=== PATIENT | female | born 1970 | race African-American/Black ===

== ENCOUNTER 2016-09-12 11:31 | Inpatient (IN) | payer BC ==
[2016-09-12 12:08] VITALS: BMI 24.0
--- NOTE | 2016-09-12 12:48 | HP ---
CIWA Score - CIWA Score Nausea/Vomitin-Mild Nausea/No Vomiting Muscle Tremors: 4-Moderate,w/Arms Extend Anxiety: 4-Mod. Anxious/Guarded Agitation: 1-Slight > Activity Paroxysmal Sweats: 1-Minimal Palms Moist Orientation: 0-Oriented Tacttile Disturbances: 1-Very Mild Itch/Numbness Auditory Disturbances: 1-Very Mild Visual Disturbances: 1-Very Mild Sensitivity Headache: 1-Very Mild CIWA-Ar Total Score: 15 Admission ROS BHS - HPI Chief Complaint: It's time, I want to stop Allergies/Adverse Reactions: Allergies Allergy/AdvReac Type Severity Reaction Status Date / Time No Known Allergies Allergy Verified 09/12/16 12:38 History of Present Illness: 46 yo woman here in detox for first time for alcohol dependence - history of being in outpatient rehab and 12 step meetings. No seizures but does have black outs. Exam Limitations: Clinical Condition - Ebola screening Have you traveled outside of the country in the last 21 days: No Have you had contact with anyone from an Ebola affected area: No Have you been sick,other than usual withdrawal symptoms: No Do you have a fever: No - Review of Systems Constitutional: Loss of Appetite, Malaise, Changes in sleep EENT: reports: No Symptoms Reported Respiratory: reports: No Symptoms reported Cardiac: reports: No Symptoms Reported GI: reports: No Symptoms Reported : reports: No Symptoms Reported Musculoskeletal: reports: No Symptoms Reported Integumentary: reports: Dryness Neuro: reports: Headache, Tremors Endocrine: reports: No Symptoms Reported Hematology: reports: No Symptoms Reported Psychiatric: reports: Judgement Intact, Mood/Affect Appropiate, Orientated x3, Anxious Other Systems: Reviewed and Negative Patient History - Patient Medical History Hx Asthma: No Hx Chronic Obstructive Pulmonary Disease (COPD): No Hx Cancer: No Hx Cardiac Disorders: No Hx Congestive Heart Failure: No Hx Hypertension: No Hx Hypercholesterolemia: No Hx Pacemaker: No Hx Seizures: No Hx Dementia: No Hx Diabetes: No Hx Gastrointestinal Disorders: No Hx Liver Disease: No Hx Genitourinary Disorders: No Hx Sexually Transmitted Disorders: No Hx Renal Disease (ESRD): No Hx Thyroid Disease: No Hx Human Immunodeficiency Virus (HIV): No Hx Hepatitis C: No Hx Depression: Yes (with anxiety and insomnia) Hx Suicide Attempt: No Hx Bipolar Disorder: No Hx Schizophrenia: No - Patient Surgical History Past Surgical History: Yes Hx Breast Surgery: Yes (breast reduction 2007) Hx Abdominal Surgery: Yes (gastric bypass 2006, intestional blockage s/p bypass) Hx Genitourinary Surgery: Yes (tubal ligation 1997) Hx Orthopedic Surgery: Yes (right ankle fracture with screws/plate 1988) - PPD History Previous Implant?: Yes Documented Results: Negative w/o proof PPD to be Administered?: Yes - Reproductive History Patient is a Female of Child Bearing Age (11 -55 yrs old): Yes - Smoking Cessation Smoking history: Never smoked - Substance & Tx. History Hx Alcohol Use: Yes Hx Substance Use: Yes Substance Use Type: Alcohol, Marijuana Hx Substance Use Treatment: Yes (outpatient rehab, 12 step) Family Disease History - Family Disease History Family Disease History: [place]: Grandparent (bio grandma - - etoh), Father (alive, ), Other: Grandparent, Father, Mother (alive, healthy), Brother (1/2 bro - healthy - hx drugs), Sister (1/2 sister - healthy - uses pot), Son (living , healthy, pot (age 21)), Daughter (living, healthy, age 19 ) Admission Physical Exam [facility] - Vital Signs Vital Signs: Vital Signs - 24 hr 09/12/16 11:53 Temperature 98.6 F Pulse Rate 74 Respiratory 18 Rate Blood Pressure 133/81 - Physical General Appearance: Yes: Nourished, Appropriately Dressed, Mild Distress, Tremorous HEENTM: Yes: Hearing grossly Normal, Normocephalic, Normal Voice, Pharynx Normal Respiratory: Yes: Normal Breath Sounds, No Respiratory Distress Neck: Yes: No masses,lesions,Nodules, Supple Breast: Yes: Breast Exam Deferred Cardiology: Yes: Regular Rhythm, Regular Rate Abdominal: Yes: Soft Genitourinary: Yes: Frequency Back: Yes: Normal Inspection Musculoskeletal: Yes: full range of Motion, Gait Steady Extremities: Yes: Normal Inspection, Normal Range of Motion Neurological: Yes: Fully Oriented, Alert, Normal Mood/Affect, Normal Response Integumentary: Yes: Normal Color, Warm Lymphatic: Yes: Within Normal Limits - Diagnostic (1) Alcohol dependence with uncomplicated withdrawal Current Visit: Yes Status: Chronic (2) Marijuana dependence Current Visit: Yes Status: Chronic (3) History of gastric bypass Current Visit: Yes Status: Chronic Cleared for Admission [facility] - Detox or Rehab [facility] Level of Care: Medically Managed [facility] Bre[facility] Alcohol Content Breath Alcohol Content: 0.094 Urine Pregancy Test - Result Urine Test Results: Negative- NO Line Present Urine Drug Screen - Results Drug Screen Negative: No Urine Drug Screen Results: THC-Marijuana
[2016-09-12] MEDS ORDERED: ACETAMINOPHEN 325 MG TABLET (FP) PO PRN (12:53)
[2016-09-12] MEDS ORDERED: P-EPHED 60MG/TRIPROLIDI 2.5MG TABLET PO PRN (12:53)
[2016-09-12] MEDS ORDERED: LOPERAMIDE HCL 2 MG CAPSULE PO PRN (12:53)
[2016-09-12] MEDS ORDERED: hydrOXYzine PAMOATE 50 MG CAPSULE (FP) PO PRN (12:53)
[2016-09-12] MEDS ORDERED: MAGNESIUM HYDROX 2400MG/30ML ORAL SUSPENSION 30 ML CUP PO PRN (12:53)
[2016-09-12] MEDS ORDERED: chlordiazePOXIDE HCL 25 MG CAPSULE PO PRN (12:53)
[2016-09-12] MEDS ORDERED: MENTHOL/PHENOL 1 EACH UD MM PRN (12:53)
[2016-09-12] MEDS ORDERED: IBUPROFEN 400 MG TABLET (FP) PO PRN (12:53)
[2016-09-12] MEDS ORDERED: guaiFENesin/D-METHORPHAN HB 10 ML UNIT-DOSE CUPS PO PRN (12:53)
[2016-09-12] MEDS ORDERED: MAG HYDROX/AL HYDROX/SIMETH 30 ML UNIT-DOSE CUP PO PRN (12:53)
[2016-09-12] MEDS ORDERED: MAGNESIUM CITRATE 300 ML BOTTLE PO PRN (12:53)
[2016-09-12] MEDS ORDERED: chlordiazePOXIDE HCL 25 MG CAPSULE PO ONE (13:30)
[2016-09-12 17:16] LABS: URINE APPEARANCE SLCLOUDY; URINE BLOOD NEGATIVE (NEGATIVE); URINE COLOR AMBER; URINE GLUCOSE (UA) NEGATIVE (NEGATIVE); URINE KETONE TRACE (NEGATIVE); URINE NITRITE NEGATIVE (NEGATIVE); URINE PROTEIN NEGATIVE (NEGATIVE)
[2016-09-12 17:20] LABS: URINE LEUK ESTERASE 1+ (NEGATIVE)
[2016-09-12] MEDS: chlordiazePOXIDE HCL 25 MG CAPSULE PO SCH ×2 (17:20→22:01)
[2016-09-12 17:26] LABS: URINE MUCUS RARE; URINE RBC 10 /hpf (0-3); URINE WBC 4 /hpf (3-5)
[2016-09-12] MEDS: THIAMINE HCL 100 MG TABLET (FP) PO SCH (22:01)
[2016-09-12] MEDS: diphenhydrAMINE HCL 50 MG CAPSULE PO PRN (22:03)
[2016-09-13] MEDS: chlordiazePOXIDE HCL 25 MG CAPSULE PO SCH ×4 (06:03→22:20)
[2016-09-13 10:31] LABS: ALBUMIN 3.1 g/dl (3.4-5.0); ANION GAP 8 (8-16); CALCIUM 9.1 mg/dL (8.5-10.1); CO2 29 mmol/L (21-32); GLUCOSE,RANDOM 61 mg/dL (74-106); SGOT/AST 73 U/L (15-37); SGPT/ALT 42 U/L (12-78)
[2016-09-13 10:33] LABS: ALK PHOS 104 U/L (45-117); BILIRUBIN,TOTAL 0.4 mg/dL (0.2-1.0); CREATININE 0.8 mg/dL (0.55-1.02); MCH 34.6 pg (25.7-33.7); MCHC 33.7 g/dl (32.0-36.0); MEAN CELL VOLUME 102.8 fl (80-96); MEAN PLT VOLUME 8.2 fl (7.5-11.1); PLATELET COUNT 210 K/MM3 (134-434); RDW 13.7 % (11.6-15.6); TOT PROT 6.3 g/dl (6.4-8.2); WHITE BLOOD COUNT 4.3 K/mm3 (4.0-10.0)
[2016-09-13] MEDS: PRENATAL VITAMINS W/ FOLIC ACID TABLET (FP) PO SCH (10:42)
[2016-09-13] MEDS ORDERED: FLUoxetine HCL 20 MG CAPSULE (FP) PO SCH (13:15)
[2016-09-13] MEDS: ESCITALOPRAM OXALATE 20 MG TABLET (FP) PO SCH (14:44)
--- NOTE | 2016-09-13 16:00 | PN ---
[facility] CIWA - CIWA Score Nausea/Vomitin-Mild Nausea/No Vomiting Muscle Tremors: 3 Anxiety: 4-Mod. Anxious/Guarded Agitation: 4-Moderately Restless Paroxysmal Sweats: 3 Orientation: 0-Oriented Tacttile Disturbances: 0-None Auditory Disturbances: 0-None Visual Disturbances: 0-None Headache: 0-None Present CIWA-Ar Total Score: 15 BHS Progress Note (SOAP) Subjective: Anxiety,tremors,sweating,interrupted sleep,restless Objective: 09/13/16 15:59 Vital Signs - 8 hr 09/13/16 09/13/16 10:00 13:44 Temperature 97.9 F 97.9 F Pulse Rate 59 L 66 Respiratory 18 18 Rate Blood Pressure 146/77 130/76 Laboratory Last Values WBC 4.3 K/mm3 (4.0-10.0) 09/13/16 07:45 RBC 3.16 M/mm3 (3.60-5.2) L 09/13/16 07:45 Hgb 10.9 GM/dL (10.7-15.3) 09/13/16 07:45 Hct 32.5 % (32.4-45.2) 09/13/16 07:45 MCV 102.8 fl (80-96) H 09/13/16 07:45 MCH 34.6 pg (25.7-33.7) H 09/13/16 07:45 MCHC 33.7 g/dl (32.0-36.0) 09/13/16 07:45 RDW 13.7 % (11.6-15.6) 09/13/16 07:45 Plt Count 210 K/MM3 (134-434) 09/13/16 07:45 MPV 8.2 fl (7.5-11.1) 09/13/16 07:45 Sodium 139 mmol/L (136-145) 09/13/16 07:45 Potassium 4.0 mmol/L (3.5-5.1) 09/13/16 07:45 Chloride 102 mmol/L (98-107) 09/13/16 07:45 Carbon Dioxide 29 mmol/L (21-32) 09/13/16 07:45 Anion Gap 8 (8-16) 09/13/16 07:45 BUN 13 mg/dL (7-18) 09/13/16 07:45 Creatinine 0.8 mg/dL (0.55-1.02) 09/13/16 07:45 Creat Clearance w eGFR > 60 (>60) 09/13/16 07:45 Random Glucose 61 mg/dL (74-106) L 09/13/16 07:45 Calcium 9.1 mg/dL (8.5-10.1) 09/13/16 07:45 Total Bilirubin 0.4 mg/dL (0.2-1.0) 09/13/16 07:45 AST 73 U/L (15-37) H 09/13/16 07:45 ALT 42 U/L (12-78) 09/13/16 07:45 Alkaline Phosphatase 104 U/L (45-117) 09/13/16 07:45 Total Protein 6.3 g/dl (6.4-8.2) L 09/13/16 07:45 Albumin 3.1 g/dl (3.4-5.0) L 09/13/16 07:45 Urine Color Talya 09/12/16 16:30 Urine Appearance Slcloudy 09/12/16 16:30 Urine pH 5.0 (5.0-8.0) 09/12/16 16:30 Ur Specific [place] >= 1.030 (1.005-1.025) H 09/12/16 16:30 Urine Protein Negative (NEGATIVE) 09/12/16 16:30 Urine Glucose (UA) Negative (NEGATIVE) 09/12/16 16:30 Urine Ketones Trace (NEGATIVE) H 09/12/16 16:30 Urine Blood Negative (NEGATIVE) 09/12/16 16:30 Urine Nitrite Negative (NEGATIVE) 09/12/16 16:30 Urine Bilirubin 2.0 (NEGATIVE) 09/12/16 16:30 Urine Urobilinogen 2.0 mg/dL (0.2-1.0) H 09/12/16 16:30 Ur Leukocyte Esterase 1+ (NEGATIVE) H 09/12/16 16:30 Urine RBC 10 /hpf (0-3) 09/12/16 16:30 Urine WBC 4 /hpf (3-5) 09/12/16 16:30 Ur Epithelial Cells Many /hpf (FEW) 09/12/16 16:30 Urine Mucus Rare 09/12/16 16:30 RPR Titer Nonreactive (NONREACTIVE) 09/13/16 07:45 labs noted Assessment: 09/13/16 16:00 Withdrawal sx. Plan: Continue detox
[2016-09-13] MEDS: THIAMINE HCL 100 MG TABLET (FP) PO SCH (22:20)
[2016-09-13] MEDS: diphenhydrAMINE HCL 50 MG CAPSULE PO PRN (22:20)
[2016-09-14] MEDS: chlordiazePOXIDE HCL 25 MG CAPSULE PO SCH ×2 (05:35→10:18)
--- NOTE | 2016-09-14 08:52 | CONSULT ---
[facility] Psychiatric Consult - Data Date of interview: 09/14/16 Admission source: [facility] Identifying data: This is 46 years old female with no psychiatric hospitalization history intoxicated with: Alcohol and Cannabis Substance Abuse History: - Smoking Cessation. Smoking history: Never smoked. - Substance & Tx. History. Hx Alcohol Use: Yes. Hx Substance Use: Yes. Substance Use Type: Alcohol, Marijuana. Hx Substance Use Treatment: Yes ( outpatient rehab, 12 step) Medical History: Gastric Bypass s/p 2000 Psychiatric History: RTeports history of depression, reports taking prior to admission: Lexapro 20mg poqd Physical/Sexual Abuse/Trauma History: Denies Additional Comment: Urine Drug Screen Results: THC-Marijuana. Lexapro 20mg poqd Mental Status Exam - Mental Status Exam Alert and Oriented to: Person Cognitive Function: Fair Patient Appearance: Unkempt Mood: Sad Affect: Mood Congruent Patient Behavior: Cooperative Speech Pattern: Delayed Voice Loudness: Mildly Soft/Quiet Thought Process: Circumstantial Thought Disorder: Being Controlled Hallucinations: Denies Suicidal Ideation: Denies Homicidal Ideation: Denies Insight/Judgement: Fair Sleep: Difficulty falling asleep Appetite: Fair Muscle strength/Tone: Mild Hypotonicity Gait/Station: Shuffling Additional Comments: Lexapro 20mg poqd Psychiatric Findings - Problem List ([place] 1, 2,3) (1) Alcohol dependence with uncomplicated withdrawal Current Visit: Yes Status: Chronic (2) Marijuana dependence Current Visit: Yes Status: Chronic (3) Drug-induced mood disorder Current Visit: Yes Status: Acute - Initial Treatment Plan Initial Treatment Plan: Lexapro 20mg poqd
[2016-09-14 09:50] VITALS: BP 125/75; PULSE 83; TEMP 96.6
--- NOTE | 2016-09-14 09:59 | EKG ---
Test Reason : Blood Pressure : / mmHG Vent. Rate : 066 BPM Atrial Rate : 066 BPM P-R Int : 140 ms QRS Dur : 084 ms QT Int : 430 ms P-R-T Axes : 043 011 023 degrees QTc Int : 450 ms NORMAL SINUS RHYTHM NORMAL ECG NO PREVIOUS ECGS AVAILABLE Confirmed by PAULA VIGIL MD ([id number]) on 09/14/2016 9:58:50 AM Referred By: Confirmed By:PAULA VIGIL MD
--- NOTE | 2016-09-14 10:01 | PN ---
S CIWA - CIWA Score Nausea/Vomitin Muscle Tremors: 3 Anxiety: 3 Agitation: 3 Paroxysmal Sweats: No Perspiration Orientation: 0-Oriented Tacttile Disturbances: 1-Very Mild Itch/Numbness Auditory Disturbances: 1-Very Mild Visual Disturbances: 1-Very Mild Sensitivity Headache: 2-Mild CIWA-Ar Total Score: 16 BHS Progress Note (SOAP) Subjective: ALERT,IRRITABLE,ANXIOUS,INTERRUPTED SLEEP,TREMOR Objective: 09/14/16 09:59 Vital Signs Temperature 96.6 F L 09/14/16 09:50 Pulse Rate 83 09/14/16 09:50 Respiratory Rate 18 09/14/16 09:50 Blood Pressure 125/75 09/14/16 09:50 O2 Sat by Pulse Oximetry (%) EKG NSR,NORMAL ECG Laboratory Last Values WBC 4.3 K/mm3 (4.0-10.0) 09/13/16 07:45 RBC 3.16 M/mm3 (3.60-5.2) L 09/13/16 07:45 Hgb 10.9 GM/dL (10.7-15.3) 09/13/16 07:45 Hct 32.5 % (32.4-45.2) 09/13/16 07:45 MCV 102.8 fl (80-96) H 09/13/16 07:45 MCH 34.6 pg (25.7-33.7) H 09/13/16 07:45 MCHC 33.7 g/dl (32.0-36.0) 09/13/16 07:45 RDW 13.7 % (11.6-15.6) 09/13/16 07:45 Plt Count 210 K/MM3 (134-434) 09/13/16 07:45 MPV 8.2 fl (7.5-11.1) 09/13/16 07:45 Sodium 139 mmol/L (136-145) 09/13/16 07:45 Potassium 4.0 mmol/L (3.5-5.1) 09/13/16 07:45 Chloride 102 mmol/L (98-107) 09/13/16 07:45 Carbon Dioxide 29 mmol/L (21-32) 09/13/16 07:45 Anion Gap 8 (8-16) 09/13/16 07:45 BUN 13 mg/dL (7-18) 09/13/16 07:45 Creatinine 0.8 mg/dL (0.55-1.02) 09/13/16 07:45 Creat Clearance w eGFR > 60 (>60) 09/13/16 07:45 Random Glucose 61 mg/dL (74-106) L 09/13/16 07:45 Calcium 9.1 mg/dL (8.5-10.1) 09/13/16 07:45 Total Bilirubin 0.4 mg/dL (0.2-1.0) 09/13/16 07:45 AST 73 U/L (15-37) H 09/13/16 07:45 ALT 42 U/L (12-78) 09/13/16 07:45 Alkaline Phosphatase 104 U/L (45-117) 09/13/16 07:45 Total Protein 6.3 g/dl (6.4-8.2) L 09/13/16 07:45 Albumin 3.1 g/dl (3.4-5.0) L 09/13/16 07:45 Urine Color Talya 09/12/16 16:30 Urine Appearance Slcloudy 09/12/16 16:30 Urine pH 5.0 (5.0-8.0) 09/12/16 16:30 Ur Specific [place] >= 1.030 (1.005-1.025) H 09/12/16 16:30 Urine Protein Negative (NEGATIVE) 09/12/16 16:30 Urine Glucose (UA) Negative (NEGATIVE) 09/12/16 16:30 Urine Ketones Trace (NEGATIVE) H 09/12/16 16:30 Urine Blood Negative (NEGATIVE) 09/12/16 16:30 Urine Nitrite Negative (NEGATIVE) 09/12/16 16:30 Urine Bilirubin 2.0 (NEGATIVE) 09/12/16 16:30 Urine Urobilinogen 2.0 mg/dL (0.2-1.0) H 09/12/16 16:30 Ur Leukocyte Esterase 1+ (NEGATIVE) H 09/12/16 16:30 Urine RBC 10 /hpf (0-3) 09/12/16 16:30 Urine WBC 4 /hpf (3-5) 09/12/16 16:30 Ur Epithelial Cells Many /hpf (FEW) 09/12/16 16:30 Urine Mucus Rare 09/12/16 16:30 RPR Titer Nonreactive (NONREACTIVE) 09/13/16 07:45 Assessment: 09/14/16 10:01 WITHDRAWAL SYMPTOM Plan: CONTINUE DETOX
[2016-09-14] MEDS: PRENATAL VITAMINS W/ FOLIC ACID TABLET (FP) PO SCH (10:18)
[2016-09-14] MEDS: ESCITALOPRAM OXALATE 20 MG TABLET (FP) PO SCH (10:18)
--- NOTE | 2016-09-14 10:30 | PN ---
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
--- NOTE | 2016-09-14 10:31 | DS ---
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, SEEN BY COUNSELOR,SIGNED RELEASE AMA Pertinent Past History: HISTORY OF GASTRIC BYPASS - Physical Exam Results Vital Signs: Vital Signs Temperature 96.6 F L 09/14/16 09:50 Pulse Rate 83 09/14/16 09:50 Respiratory Rate 18 09/14/16 09:50 Blood Pressure 125/75 09/14/16 09:50 O2 Sat by Pulse Oximetry (%) Pertinent Admission Physical Exam Findings: WITHDRAWAL SYMPTOM - Medication Discharge Medications: Ambulatory Orders Escitalopram Oxalate [Lexapro -] 20 mg PO DAILY 09/12/16 Prazosin HCl [Minipress -] 1 mg PO HS 09/12/16 Escitalopram Oxalate [Lexapro -] 20 mg PO DAILY #30 tablet 09/13/16 - AMA Did Patient Leave Against Medical Advice: Yes
[2016-09-14] MEDS ORDERED: chlordiazePOXIDE 5 MG CAPSULE PO SCH (17:00)
[2016-09-15] MEDS ORDERED: chlordiazePOXIDE HCL 10 MG CAPSULE PO SCH (17:00)
== END 2016-09-14 10:59 | disposition left against medical advice (07) | DRG 894 ==
LOC: YASAS 11:31 → Y6N 13:15
PROVIDERS: ADMIT Internal Medicine; ATTEND Internal Medicine
PROC: HZ2ZZZZ Detoxification Services for Substance Abuse Treatment (ICD-10-PCS; principal; 2016-09-12)
DX: F10.230 Alcohol dependence with withdrawal, uncomplicated (principal); F12.20 Cannabis dependence, uncomplicated; F19.24 Other psychoactive substance dependence with psychoactive substance-induced mood disorder; Z98.84 Bariatric surgery status
CPT/HCPCS: 36415; 80053; 81003; 81015; 85027; 86593; 93005; 93010